=== PATIENT | female | born 2000 | race Caucasian/White ===

== ENCOUNTER 2021-08-19 10:11 | Emergency (ER) | payer OTHER ==
[2021-08-19 10:45] VITALS: BP 116/73; PULSE 111; TEMP 97.5; BMI 28.0
== END 2021-08-19 11:10 | disposition left against medical advice (07) ==
LOC: JER 10:11
DX: S09.90XA Unspecified injury of head, initial encounter (principal); M54.50 Low back pain, unspecified; Y04.8XXA Assault by other bodily force, initial encounter; Y07.03 Male partner, perpetrator of maltreatment and neglect
CPT/HCPCS: 99281-25

== ENCOUNTER 2021-12-12 08:04 | Emergency (ER) | payer OTHER ==
[2021-12-12 08:24] VITALS: BP 136/77; TEMP 98.4; BMI 29.2
[2021-12-12] MEDS ORDERED: DIPHTH,PERTUSS(ACELL),TET 0.5 ML DISP.SYRIN IM ONE ×2 (09:18→09:50)
[2021-12-12 09:55] VITALS: PULSE 100
== END 2021-12-12 10:21 | disposition home or self-care (01) ==
LOC: JER 08:04
PROC: 3E0234Z Introduction of Serum, Toxoid and Vaccine into Muscle, Percutaneous Approach (ICD-10-PCS; principal; 2021-12-12)
DX: S00.03XA Contusion of scalp, initial encounter (principal); Y04.0XXA Assault by unarmed brawl or fight, initial encounter; Y07.03 Male partner, perpetrator of maltreatment and neglect
CPT/HCPCS: 90471; 93005; 93010; 99284-25